=== PATIENT | female | born 1965 | race Caucasian/White ===

== ENCOUNTER 2016-02-28 13:22 | Emergency (ER) | payer OTHER ==
[2016-02-28] MEDS ORDERED: OXYMETAZOLINE NASAL SPRAY (AFRIN) As Ordered ONE (14:41)
[2016-02-28 15:15] LABS: BASO # 0.1 K/mm3 (0.0-0.2); BASO % 1.1 % (0.0-1.0); EOS # 0.2 K/mm3 (0.0-0.50); EOS % 3.1 % (0.0-3.0); LARGE UNSTAINED CELL # 0.1 K/mm3 (0.0-0.4); LARGE UNSTAINED CELL % 1.4 % (0.0-4.0); LYMPH # 2.1 K/mm3 (1.5-4.5); LYMPH % 28.5 % (24.0-44.0); MEAN CORPUSCULAR HEMOGLOBIN 29.7 pg (27.0-33.0); MEAN CORPUSCULAR HGB CONC 31.4 g/dl (32.0-36.5); MEAN CORPUSCULAR VOLUME 94.8 fl (80.0-96.0); MONO # 0.5 K/mm3 (0.0-0.8); MONO % 7.2 % (0.0-5.0); NEUTROPHILS # 4.2 K/mm3 (1.8-7.7); NEUTROPHILS % 58.7 % (36.0-66.0); PLATELET COUNT, AUTOMATED 362 k/mm3 (150-450); RED CELL DISTRIBUTION WIDTH 13.1 % (11.5-14.5); WHITE BLOOD COUNT 7.1 K/mm3 (4.0-10.0)
[2016-02-28 15:25] LABS: ALBUMIN 3.5 GM/DL (3.2-5.2); ALBUMIN/GLOBULIN RATIO 1.17 (1.00-1.93); ALKALINE PHOSPHATASE 83 U/L (45-117); ALT/SGPT 16 U/L (12-78); ANION GAP 9 MEQ/L (8-16); AST/SGOT 11 U/L (15-37); BILIRUBIN,TOTAL 0.3 MG/DL (0.2-1.0); BLOOD UREA NITROGEN 16 MG/DL (7-18); CALCIUM LEVEL 8.6 MG/DL (8.5-10.1); CARBON DIOXIDE LEVEL 23 MEQ/L (21-32); CHLORIDE LEVEL 110 MEQ/L (98-107); CREATININE FOR GFR 0.92 MG/DL (0.55-1.02); GLOMERULAR FILTRATION RATE > 60.0 (>58); GLUCOSE, FASTING 82 MG/DL (70-105); POTASSIUM SERUM 3.9 MEQ/L (3.5-5.1); SODIUM LEVEL 142 MEQ/L (136-145); TOTAL PROTEIN 6.5 GM/DL (6.4-8.2)
--- NOTE | 2016-02-28 16:39 | EDDOCDS ---
Physician Documentation [facility] Name: Katie Concepcion Age: 50 yrs Sex: Female : 1965 Arrival Date: 02/28/2016 Time: 13:22 Bed I4 / M4 Private MD: Shan [facility] Disposition: 02/28/16 16:10 Discharged to Home/Self Care. Impression: Dizziness and giddiness, Other specified disorders of Eustachian tube - Dysfunction. - Condition is Stable. - Discharge Instructions: Dizziness. - Prescriptions for Afrin (oxymetazoline) 0.05 % Nasal Aerosol, Danese - spray 2 spray by INTRANASAL route 2 times per day; 1 Container. Zyrtec 10 mg Oral Tablet - take 1 tablet by ORAL route once daily As needed; 20 tablet. - Medication Reconciliation, Local Pharmacy Hours form. - Follow up: [facility] Shan; When: 1 - 2 days; Reason: Recheck today's complaints, Continuance of care. Follow up: Emergency Department; Reason: Worsening of conditions. - Problem is new. - Symptoms have improved. Historical: - Allergies: Amoxicillin (Rash); - Home Meds: 1. Micardis 80 mg Oral tab 1 tab once daily 2. levothyroxine 175 mcg Oral tab 1 tab once daily 3. simvastatin 10 mg Oral tab 1 tab once daily 4. omeprazole 20 mg Oral cpDR 1 cap once daily 5. levocetirizine 5 mg oral tab 1 tab once daily 6. Singulair 10 mg Oral tab 1 tab once daily 7. Flonase 50 mcg/actuation Nasal spsn 1 spray 2 times per day 8. Restasis 0.05 % ophthalmic dpet 1 drop 2 times per day 9. Prozac 40 mg Oral cap 1 cap once daily 10. Topamax 200 mg Oral tab 1 tab daily 11. Ambien 5 mg Oral tab 1 tab once daily 12. Motrin Oral 800 mg every 8 hours 13. melatonin 5 mg Oral tab nightly 14. multivitamin Oral tab 1 tab daily 15. [place]-3 350 mg-235 mg- 90 mg-597 mg oral cpDR daily 16. Metamucil Smooth Texture Oral as needed 17. Colace oral Unknown as needed 18. Zyrtec 10 mg Oral tab 1 tab once daily - PMHx: Anemia; back and neck pain; Diverticulitis; GERD; Hypercholesterolemia; Hypertension; Hypothyroidism; Migraine Headaches; Plantar Fasciitis; Seasonal Allergies; Sleep Apnea w/ CPAP; TMJ; - PSHx: Nasal surgery; Scope Right Knee; Lasik Surgery; - Social history: Smoking status: Patient states was never smoker of tobacco. No barriers to communication noted, The patient speaks fluent Moroccan, Speaks appropriately for age. - Family history: Not pertinent. - : The pt / caregiver states he / she is not on anticoagulants. Home medication list is obtained from the patient. - Exposure Risk Screening:: None identified. THREAD WINDER: 02/27 13:35 LMP 01/16/2016, denies or irregular menses pml Vital Signs: 13:24 BP 154 / 96; Pulse 77; Resp 18 S; Temp 96.5(O); Pulse Ox 97% on R/A; Weight 86.18 kg / gr2 189.99 lbs (R); Height 5 ft. 6 in. (167.64 cm) (R); Pain 4/10; 15:51 BP 143 / 74; Pulse 84; Resp 18; Temp 96.6; Pulse Ox 98% ; Pain 1/10; jam1 13:24 Body Mass Index 30.67 (86.18 kg, 167.64 cm) gr2 MDM: 14:12 Financial registration complete. lg 14:15 [facility] Payment Agreement was scanned into [employer] and attached to record. lg 14:29 Accucheck ordered. ef1 14:29 IV Saline Lock ordered. ef1 14:29 NS 0.9% 1000 ml IV at bolus once ordered. ef1 14:30 ECG WITH READING ER PHYS+CARDIAG ordered. EDMS 14:30 CBC with Diff Ordered. EDMS 14:30 Complete Comphrensive Metabolic Ordered. EDMS 14:31 Oxymetazoline Danese 0.05 % 2 sprays Intranasal once ordered. ef1 14:45 Fingerstick Blood Sugar Ordered. EDMS 14:57 Fingerstick Blood Sugar Reviewed. ef1 15:46 CBC with Diff Reviewed. ef1 15:46 Complete Comphrensive Metabolic Reviewed. ef1 Point of Care Testing: Blood Glucose: 14:38 Blood Glucose: 78 mg/dL; kr3 Ranges: Administered Medications: 14:45 Drug: Oxymetazoline 2 sprays [oxymetazoline 0.05 % nasal spray (2 sprays)] Route: dls Intranasal; Site: both nares; 14:56 Drug: NS 0.9% 1000 ml [sodium chloride 0.9 % intravenous solution] Route: IV; Rate: dls bolus; Site: right antecubital; Signatures: Dispatcher [employer] Maddie Dyer RN RN dls Azucena Engel, Reg Reg lg Zaria Galdamez, PA-C PA-C ef1 Rebeka Jovel RN RN pml The chart was reviewed and I authenticate all verbal orders and agree with the evaluation and treatment provided.Attachments: 14:15 [facility] Payment Agreement lg MTDD
--- NOTE | 2016-02-28 16:39 | EDDOCDS ---
Nurse's Notes [facility] Name: Katie Concepcion Age: 50 yrs Sex: Female : 1965 Arrival Date: 02/28/2016 Time: 13:22 Bed I4 / M4 Private MD: Shan [facility] [place] [facility] Diagnosis: Dizziness and giddiness;Other specified disorders of Eustachian tube-Dysfunction Presentation: 02/27 13:32 Presenting complaint: Patient states: dizziness, light headed, fatigued. felt like this pml a few months ago and had low potassium - states high blood pressure readings at home 147/93. Adult Sepsis Screening: The patient does not have new or worsening altered mentation. Patient's respiratory rate is less than 22. Systolic blood pressure is greater than 100. Patient has a qSOFA score of 0- Negative Sepsis Screen. Suicide/Homicide risk assessment- the patient denies having any suicidal and/or homicidal ideations and does not present with any other emotional, behavioral or mental health complaints. Status: The patient is a dependent. Transition of care: patient was not received from another setting of care. 13:32 Acuity: LOYD Level 3 pml 13:32 Method Of Arrival: Walkin/Carried/Asstd pml Triage Assessment: 13:35 General: Appears in no apparent distress, Behavior is appropriate for age, cooperative. pml Pain: Location: headache Pain currently is 5 out of 10 on a pain scale. HIV screening NA for this visit Offered previously. MANAGER RESORT: 13:35 LMP 01/16/2016, denies or irregular menses pml Historical: - Allergies: Amoxicillin (Rash); - Home Meds: 1. Micardis 80 mg Oral tab 1 tab once daily 2. levothyroxine 175 mcg Oral tab 1 tab once daily 3. simvastatin 10 mg Oral tab 1 tab once daily 4. omeprazole 20 mg Oral cpDR 1 cap once daily 5. levocetirizine 5 mg oral tab 1 tab once daily 6. Singulair 10 mg Oral tab 1 tab once daily 7. Flonase 50 mcg/actuation Nasal spsn 1 spray 2 times per day 8. Restasis 0.05 % ophthalmic dpet 1 drop 2 times per day 9. Prozac 40 mg Oral cap 1 cap once daily 10. Topamax 200 mg Oral tab 1 tab daily 11. Ambien 5 mg Oral tab 1 tab once daily 12. Motrin Oral 800 mg every 8 hours 13. melatonin 5 mg Oral tab nightly 14. multivitamin Oral tab 1 tab daily 15. [place]-3 350 mg-235 mg- 90 mg-597 mg oral cpDR daily 16. Metamucil Smooth Texture Oral as needed 17. Colace oral Unknown as needed 18. Zyrtec 10 mg Oral tab 1 tab once daily - PMHx: Anemia; back and neck pain; Diverticulitis; GERD; Hypercholesterolemia; Hypertension; Hypothyroidism; Migraine Headaches; Plantar Fasciitis; Seasonal Allergies; Sleep Apnea w/ CPAP; TMJ; - PSHx: Nasal surgery; Scope Right Knee; Lasik Surgery; - Social history: Smoking status: Patient states was never smoker of tobacco. No barriers to communication noted, The patient speaks fluent Somali, Speaks appropriately for age. - Family history: Not pertinent. - : The pt / caregiver states he / she is not on anticoagulants. Home medication list is obtained from the patient. - Exposure Risk Screening:: None identified. Screenin:23 Infection Control. gr2 14:48 Screening information is obtained from the patient. Primary language is Somali. Fall jam1 risk: No risks identified. Assistance ADL's: requires no assistance with activities of daily living. Abuse/DV Screen: The patient / caregiver reports he/she is: not in a situation that causes fear, pain or injury. Nutritional screening: No deficits noted. Exposure Risk Screening: None identified. Advance Directives: Currently, there is no health care proxy. There is no active DNR order. There is no living will. There is no Power of Business Unit Controller. Advance directive information has not previously been placed in an [facility] medical record. Further advance directive information is declined. home support is adequate. Assessment: 14:57 General: Appears in no apparent distress, well developed, well nourished, well groomed, dls Behavior is cooperative. Pain: Denies pain. Neurological: Reports dizziness. EENT: No deficits noted. Cardiovascular: No deficits noted. Rhythm is sinus rhythm No ectopy. Respiratory: No deficits noted. GI: No deficits noted. : No deficits noted. Derm: No deficits noted. Musculoskeletal: No deficits noted. Vital Signs: 13:24 BP 154 / 96; Pulse 77; Resp 18 S; Temp 96.5(O); Pulse Ox 97% on R/A; Weight 86.18 kg gr2 (R); Height 5 ft. 6 in. (167.64 cm) (R); Pain 4/10; 15:51 BP 143 / 74; Pulse 84; Resp 18; Temp 96.6; Pulse Ox 98% ; Pain 1/10; jam1 13:24 Body Mass Index 30.67 (86.18 kg, 167.64 cm) gr2 Vitals: 13:24 Log In Time: February 28, 2016 at 13:24. gr2 ED Course: 13:23 Patient visited by Hermilo Farris. gr2 13:23 Shan [facility] is Private Physician. gr2 13:23 Patient moved to Waiting gr2 13:25 Patient visited by Hermilo Farris. gr2 13:25 Patient moved to Pre RCE gr2 13:32 Triage Initiated pml 13:36 Patient visited by Rebeka Jovel RN. pml 13:47 Patient moved to Triage 1 kr3 14:10 Z[facility] Galdamez [facility]-C [facility]. ef1 14:10 Dre Zayas MD is Attending Physician. ef1 14:10 Patient visited by Zaria Galdamez PA-C. ef1 14:15 [facility] Payment Agreement was scanned into [employer] and attached to record. lg 14:30 Patient moved to I4 / M4 jo3 14:48 Pt greeted and oriented to ED. Patient advised of names of staff involved in care, jam1 location of call bo, wait times and NPO status. Patient has correct armband on for positive identification. Placed in gown. Bed in low position. Call light in reach. Side rails up X 1. Door closed. 14:56 Complete Comphrensive Metabolic Sent. dls 14:56 CBC with Diff Sent. dls 14:57 Patient visited by Zaria Galdamez PA-C. ef1 14:57 Inserted saline lock: 20 gauge in right antecubital area and blood collected. The dls patient tolerated the procedure well. No procedures done that require assistance. Labs drawn. (by ED staff). EKG done. (by ED staff). Reviewed by Dre Zayas MD. 15:35 Patient visited by Zaria Galdamez PA-C. ef1 16:09 Patient visited by Zaria Galdamez PA-C. ef1 16:10 SARI Torrez is Referral Physician. ef1 16:36 Discontinued IV lock intact, bleeding controlled, pressure dressing applied, No dls redness/swelling at site. 16:38 The patient / caregiver is instructed regarding the plan of care and ED course. dls Administered Medications: 14:45 Drug: Oxymetazoline 2 sprays [oxymetazoline 0.05 % nasal spray (2 sprays)] Route: dls Intranasal; Site: both nares; 14:56 Drug: NS 0.9% 1000 ml [sodium chloride 0.9 % intravenous solution] Route: IV; Rate: dls bolus; Site: right antecubital; Point of Care Testing: Blood Glucose: 14:38 Blood Glucose: 78 mg/dL; kr3 Ranges: Order Results: Lab Order: CBC with Diff; SPEC'M 02/28/16 14:54 Test: WHITE BLOOD COUNT; Value: 7.1; Range: 4.0-10.0; Units: K/mm3; Status: F Test: RED BLOOD COUNT; Value: 4.51; Range: 4.00-5.40; Units: M/mm3; Status: F Test: HEMOGLOBIN; Value: 13.4; Range: 12.0-16.0; Units: g/dl; Status: F Test: HEMATOCRIT; Value: 42.8; Range: 36.0-47.0; Units: %; Status: F Test: MEAN CORPUSCULAR VOLUME; Value: 94.8; Range: 80.0-96.0; Units: fl; Status: F Test: MEAN CORPUSCULAR HEMOGLOBIN; Value: 29.7; Range: 27.0-33.0; Units: pg; Status: F Test: MEAN CORPUSCULAR HGB CONC; Value: 31.4; Range: 32.0-36.5; Abnormal: Below low normal; Units: g/dl; Status: F Test: RED CELL DISTRIBUTION WIDTH; Value: 13.1; Range: 11.5-14.5; Units: %; Status: F Test: PLATELET COUNT, AUTOMATED; Value: 362; Range: 150-450; Units: k/mm3; Status: F Test: NEUTROPHILS %; Value: 58.7; Range: 36.0-66.0; Units: %; Status: F Test: LYMPH %; Value: 28.5; Range: 24.0-44.0; Units: %; Status: F Test: MONO %; Value: 7.2; Range: 0.0-5.0; Abnormal: Above high normal; Units: %; Status: F Test: EOS %; Value: 3.1; Range: 0.0-3.0; Abnormal: Above high normal; Units: %; Status: F Test: BASO %; Value: 1.1; Range: 0.0-1.0; Abnormal: Above high normal; Units: %; Status: F Test: LARGE UNSTAINED CELL %; Value: 1.4; Range: 0.0-4.0; Units: %; Status: F Test: NEUTROPHILS #; Value: 4.2; Range: 1.8-7.7; Units: K/mm3; Status: F Test: LYMPH #; Value: 2.1; Range: 1.5-4.5; Units: K/mm3; Status: F Test: MONO #; Value: 0.5; Range: 0.0-0.8; Units: K/mm3; Status: F Test: EOS #; Value: 0.2; Range: 0.0-0.50; Units: K/mm3; Status: F Test: BASO #; Value: 0.1; Range: 0.0-0.2; Units: K/mm3; Status: F Test: LARGE UNSTAINED CELL #; Value: 0.1; Range: 0.0-0.4; Units: K/mm3; Status: F Lab Order: Complete Comphrensive Metabolic; SPEC'M 02/28/16 14:54 Test: GLUCOSE, FASTING; Value: 82; Range: 70-105; Units: MG/DL; Status: F Test: BLOOD UREA NITROGEN; Value: 16; Range: 7-18; Units: MG/DL; Status: F Test: CREATININE FOR GFR; Value: 0.92; Range: 0.55-1.02; Units: MG/DL; Status: F Test: GLOMERULAR FILTRATION RATE; Value: > 60.0; Range: >58; Status: F Test: SODIUM LEVEL; Value: 142; Range: 136-145; Units: MEQ/L; Status: F Test: POTASSIUM SERUM; Value: 3.9; Range: 3.5-5.1; Units: MEQ/L; Status: F Test: CHLORIDE LEVEL; Value: 110; Range: 98-107; Abnormal: Above high normal; Units: MEQ/L; Status: F Test: CARBON DIOXIDE LEVEL; Value: 23; Range: 21-32; Units: MEQ/L; Status: F Test: ANION GAP; Value: 9; Range: 8-16; Units: MEQ/L; Status: F Test: CALCIUM LEVEL; Value: 8.6; Range: 8.5-10.1; Units: MG/DL; Status: F Test: AST/SGOT; Value: 11; Range: 15-37; Abnormal: Below low normal; Units: U/L; Status: F Test: ALT/SGPT; Value: 16; Range: 12-78; Units: U/L; Status: F Test: ALKALINE PHOSPHATASE; Value: 83; Range: 45-117; Units: U/L; Status: F Test: BILIRUBIN,TOTAL; Value: 0.3; Range: 0.2-1.0; Units: MG/DL; Status: F Test: TOTAL PROTEIN; Value: 6.5; Range: 6.4-8.2; Units: GM/DL; Status: F Test: ALBUMIN; Value: 3.5; Range: 3.2-5.2; Units: GM/DL; Status: F Test: ALBUMIN/GLOBULIN RATIO; Value: 1.17; Range: 1.00-1.93; Status: F Test Note: ; Units are mL/min/1.73 m2 Chronic Kidney Disease Staging per NKF: Stage I & II GFR >=60 Normal to Mildly Decreased Stage III GFR 30-59 Moderately Decreased Stage IV GFR 15-29 Severely Decreased Stage V GFR <15 Very Little GFR Left ESRD GFR <15 on [place] Lab Order: Fingerstick Blood Sugar; SPEC'M 02/28/16 14:37 Test: BEDSIDE GLUCOSE; Value: 78; Range: 70-105; Units: MG/DL; Status: F Outcome: 16:10 Discharge ordered by Provider. ef1 16:36 Discharge Assessment: Patient awake, alert and oriented x 3. No cognitive and/or dls functional deficits noted. Patient verbalized understanding of disposition instructions. patient administered narcotics - no. The following High Risk Discharge criteria are identified: None. Discharged to home ambulatory. Condition: stable Condition: improved. Discharge instructions given to patient, Instructed on discharge instructions, follow up and referral plans. medication usage, Demonstrated understanding of instructions, medications, Pt was receptive of discharge instructions/ teaching. Prescriptions given X 2. No special radiology studies were completed. Property sent home with patient. 16:38 Patient left the ED. dls Signatures: Maddie Logan, RN RN dls Charlette Thompson, PSYCHIATRIC THERAPIST PSYCHIATRIC THERAPIST jam1 Azucena Engel, Giovanni Davila Torri ChenRN RN [id number] Alexandria CelisRN RN [id number] Zaria Galdamez, PA-C PA-C ef1 Rebeka JovelRN RN Hermilo Mcguire gr2 MTDD
--- NOTE | 2016-02-29 07:13 | ECGEPIP ---
Stationary ECG Study [facility] - ED Test Date: 2016-02-28 Pat Name: TOMI THOMAS Department: Room: - Gender: F Professional Services Consultant: radha : 1965 Requested By: Zaria Galdamez PA-C Order Number: [id number] Reading MD: Mika Morrison Measurements Intervals [place] Rate: 65 P: 32 MI: 148 QRS: -3 QRSD: 94 T: 6 QT: 406 QTc: 423 Interpretive Statements SINUS RHYTHM INC. RBBB NONSPECIFIC T-WAVE ABNORMALITY Electronically Signed On 02-29-2016 7:13:32 EST by Mika Morrison
--- NOTE | 2016-03-01 17:40 | EDDOCDS ---
Nurse's Notes [facility] Name: Katie Concepcion Age: 50 yrs Sex: Female : 1965 Arrival Date: 02/28/2016 Time: 13:22 Bed I4 / M4 Private MD: Shan [facility] Diagnosis: Dizziness and giddiness;Other specified disorders of Eustachian tube-Dysfunction Presentation: 02/27 13:32 Presenting complaint: Patient states: dizziness, light headed, fatigued. felt like this pml a few months ago and had low potassium - states high blood pressure readings at home 147/93. Adult Sepsis Screening: The patient does not have new or worsening altered mentation. Patient's respiratory rate is less than 22. Systolic blood pressure is greater than 100. Patient has a qSOFA score of 0- Negative Sepsis Screen. Suicide/Homicide risk assessment- the patient denies having any suicidal and/or homicidal ideations and does not present with any other emotional, behavioral or mental health complaints. Status: The patient is a dependent. Transition of care: patient was not received from another setting of care. 13:32 Acuity: LOYD Level 3 pml 13:32 Method Of Arrival: Walkin/Carried/Asstd pml Triage Assessment: 13:35 General: Appears in no apparent distress, Behavior is appropriate for age, cooperative. pml Pain: Location: headache Pain currently is 5 out of 10 on a pain scale. HIV screening NA for this visit Offered previously. 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 Micardis 80 mg Oral tab 1 tab once daily 2. levothyroxine 175 mcg Oral tab 1 tab once daily 3. simvastatin 10 mg Oral tab 1 tab once daily 4. omeprazole 20 mg Oral cpDR 1 cap once daily 5. levocetirizine 5 mg oral tab 1 tab once daily 6. Singulair 10 mg Oral tab 1 tab once daily 7. Flonase 50 mcg/actuation Nasal spsn 1 spray 2 times per day 8. Restasis 0.05 % ophthalmic dpet 1 drop 2 times per day 9. Prozac 40 mg Oral cap 1 cap once daily 10. Topamax 200 mg Oral tab 1 tab daily 11. Ambien 5 mg Oral tab 1 tab once daily 12. Motrin Oral 800 mg every 8 hours 13. melatonin 5 mg Oral tab nightly 14. multivitamin Oral tab 1 tab daily 15. [place]-3 350 mg-235 mg- 90 mg-597 mg oral cpDR daily 16. Metamucil Smooth Texture Oral as needed 17. Colace oral Unknown as needed 18. Zyrtec 10 mg Oral tab 1 tab once daily - PMHx: Anemia; back and neck pain; Diverticulitis; GERD; Hypercholesterolemia; Hypertension; Hypothyroidism; Migraine Headaches; Plantar Fasciitis; Seasonal Allergies; Sleep Apnea w/ CPAP; TMJ; - PSHx: Nasal surgery; Scope Right Knee; Lasik Surgery; - Social history: Smoking status: Patient states was never smoker of tobacco. No barriers to communication noted, The patient speaks fluent Lebanese, Speaks appropriately for age. - Family history: Not pertinent. - : The pt / caregiver states he / she is not on anticoagulants. Home medication list is obtained from the patient. - Exposure Risk Screening:: None identified. Screenin:23 Infection Control. gr2 14:48 Screening information is obtained from the patient. Primary language is Lebanese. Fall jam1 risk: No risks identified. Assistance ADL's: requires no assistance with activities of daily living. Abuse/DV Screen: The patient / caregiver reports he/she is: not in a situation that causes fear, pain or injury. Nutritional screening: No deficits noted. Exposure Risk Screening: None identified. Advance Directives: Currently, there is no health care proxy. There is no active DNR order. There is no living will. 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 Advance directive information has not previously been placed in an [facility] medical record. Further advance directive information is declined. home support is adequate. Assessment: 14:57 General: Appears in no apparent distress, well developed, well nourished, well groomed, dls Behavior is cooperative. Pain: Denies pain. Neurological: Reports dizziness. EENT: No deficits noted. Cardiovascular: No deficits noted. Rhythm is sinus rhythm No ectopy. Respiratory: No deficits noted. GI: No deficits noted. : No deficits noted. Derm: No deficits noted. Musculoskeletal: No deficits noted. Vital Signs: 13:24 BP 154 / 96; Pulse 77; Resp 18 S; Temp 96.5(O); Pulse Ox 97% on R/A; Weight 86.18 kg gr2 (R); Height 5 ft. 6 in. (167.64 cm) (R); Pain 4/10; 15:51 BP 143 / 74; Pulse 84; Resp 18; Temp 96.6; Pulse Ox 98% ; Pain 1/10; jam1 13:24 Body Mass Index 30.67 (86.18 kg, 167.64 cm) gr2 Vitals: 13:24 Log In Time: February 28, 2016 at 13:24. gr2 ED Course: 13:23 Patient visited by Hermilo Farris. gr2 13:23 Shan [facility] is Private Physician. gr2 13:23 Patient moved to Waiting gr2 13:25 Patient visited by Hermilo Farris. gr2 13:25 Patient moved to Pre RCE gr2 13:32 Triage Initiated pml 13:36 Patient visited by Rebeka Jovel RN. pml 13:47 Patient moved to Triage 1 kr3 14:10 [facility] ef1 14:10 Dre Zayas MD is Attending Physician. ef1 14:10 Patient visited by Zaria Galdamez PA-C. ef1 14:15 [facility] Payment Agreement was scanned into StandDesk and attached to record. lg 14:30 Patient moved to I4 / M4 jo3 14:48 Pt greeted and oriented to ED. Patient advised of names of staff involved in care, jam1 location of call bo, wait times and NPO status. Patient has correct armband on for positive identification. Placed in gown. Bed in low position. Call light in reach. Side rails up X 1. Door closed. 14:56 Complete Comphrensive Metabolic Sent. dls 14:56 CBC with Diff Sent. dls 14:57 Patient visited by Zaria Galdamez PA-C. ef1 14:57 Inserted saline lock: 20 gauge in right antecubital area and blood collected. The dls patient tolerated the procedure well. No procedures done that require assistance. Labs drawn. (by ED staff). EKG done. (by ED staff). Reviewed by Dre Zayas MD. 15:35 Patient visited by Zaria Galdamez PA-C. ef1 16:09 Patient visited by Zaria Galdamez PA-C. ef1 16:10 SARI Torrez is Referral Physician. ef1 16:36 Discontinued IV lock intact, bleeding controlled, pressure dressing applied, No dls redness/swelling at site. 16:38 The patient / caregiver is instructed regarding the plan of care and ED course. dls 22:00 T-Sheet-- Draft Copy was scanned into StandDesk and attached to record. klr 02/28 07:28 EKG-ADULT Returned. EDMS 10:21 ECG/EKG was scanned into StandDesk and attached to record. gb Administered Medications: 02/27 14:45 Drug: Oxymetazoline 2 sprays [oxymetazoline 0.05 % nasal spray (2 sprays)] Route: dls Intranasal; Site: both nares; 14:56 Drug: NS 0.9% 1000 ml [sodium chloride 0.9 % intravenous solution] Route: IV; Rate: dls bolus; Site: right antecubital; Point of Care Testing: Blood Glucose: 14:38 Blood Glucose: 78 mg/dL; kr3 Ranges: Order Results: Lab Order: CBC with Diff; SPEC'M 02/28/16 14:54 Test: WHITE BLOOD COUNT; Value: 7.1; Range: 4.0-10.0; Units: K/mm3; Status: F Test: RED BLOOD COUNT; Value: 4.51; Range: 4.00-5.40; Units: M/mm3; Status: F Test: HEMOGLOBIN; Value: 13.4; Range: 12.0-16.0; Units: g/dl; Status: F Test: HEMATOCRIT; Value: 42.8; Range: 36.0-47.0; Units: %; Status: F Test: MEAN CORPUSCULAR VOLUME; Value: 94.8; Range: 80.0-96.0; Units: fl; Status: F Test: MEAN CORPUSCULAR HEMOGLOBIN; Value: 29.7; Range: 27.0-33.0; Units: pg; Status: F Test: MEAN CORPUSCULAR HGB CONC; Value: 31.4; Range: 32.0-36.5; Abnormal: Below low normal; Units: g/dl; Status: F Test: RED CELL DISTRIBUTION WIDTH; Value: 13.1; Range: 11.5-14.5; Units: %; Status: F Test: PLATELET COUNT, AUTOMATED; Value: 362; Range: 150-450; Units: k/mm3; Status: F Test: NEUTROPHILS %; Value: 58.7; Range: 36.0-66.0; Units: %; Status: F Test: LYMPH %; Value: 28.5; Range: 24.0-44.0; Units: %; Status: F Test: MONO %; Value: 7.2; Range: 0.0-5.0; Abnormal: Above high normal; Units: %; Status: F Test: EOS %; Value: 3.1; Range: 0.0-3.0; Abnormal: Above high normal; Units: %; Status: F Test: BASO %; Value: 1.1; Range: 0.0-1.0; Abnormal: Above high normal; Units: %; Status: F Test: LARGE UNSTAINED CELL %; Value: 1.4; Range: 0.0-4.0; Units: %; Status: F Test: NEUTROPHILS #; Value: 4.2; Range: 1.8-7.7; Units: K/mm3; Status: F Test: LYMPH #; Value: 2.1; Range: 1.5-4.5; Units: K/mm3; Status: F Test: MONO #; Value: 0.5; Range: 0.0-0.8; Units: K/mm3; Status: F Test: EOS #; Value: 0.2; Range: 0.0-0.50; Units: K/mm3; Status: F Test: BASO #; Value: 0.1; Range: 0.0-0.2; Units: K/mm3; Status: F Test: LARGE UNSTAINED CELL #; Value: 0.1; Range: 0.0-0.4; Units: K/mm3; Status: F Lab Order: Complete Comphrensive Metabolic; SPEC'M 02/28/16 14:54 Test: GLUCOSE, FASTING; Value: 82; Range: 70-105; Units: MG/DL; Status: F Test: BLOOD UREA NITROGEN; Value: 16; Range: 7-18; Units: MG/DL; Status: F Test: CREATININE FOR GFR; Value: 0.92; Range: 0.55-1.02; Units: MG/DL; Status: F Test: GLOMERULAR FILTRATION RATE; Value: > 60.0; Range: >58; Status: F Test: SODIUM LEVEL; Value: 142; Range: 136-145; Units: MEQ/L; Status: F Test: POTASSIUM SERUM; Value: 3.9; Range: 3.5-5.1; Units: MEQ/L; Status: F Test: CHLORIDE LEVEL; Value: 110; Range: 98-107; Abnormal: Above high normal; Units: MEQ/L; Status: F Test: CARBON DIOXIDE LEVEL; Value: 23; Range: 21-32; Units: MEQ/L; Status: F Test: ANION GAP; Value: 9; Range: 8-16; Units: MEQ/L; Status: F Test: CALCIUM LEVEL; Value: 8.6; Range: 8.5-10.1; Units: MG/DL; Status: F Test: AST/SGOT; Value: 11; Range: 15-37; Abnormal: Below low normal; Units: U/L; Status: F Test: ALT/SGPT; Value: 16; Range: 12-78; Units: U/L; Status: F Test: ALKALINE PHOSPHATASE; Value: 83; Range: 45-117; Units: U/L; Status: F Test: BILIRUBIN,TOTAL; Value: 0.3; Range: 0.2-1.0; Units: MG/DL; Status: F Test: TOTAL PROTEIN; Value: 6.5; Range: 6.4-8.2; Units: GM/DL; Status: F Test: ALBUMIN; Value: 3.5; Range: 3.2-5.2; Units: GM/DL; Status: F Test: ALBUMIN/GLOBULIN RATIO; Value: 1.17; Range: 1.00-1.93; Status: F Test Note: ; Units are mL/min/1.73 m2 Chronic Kidney Disease Staging per NKF: Stage I & II GFR >=60 Normal to Mildly Decreased Stage III GFR 30-59 Moderately Decreased Stage IV GFR 15-29 Severely Decreased Stage V GFR <15 Very Little GFR Left ESRD GFR <15 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 Lab Order: Fingerstick Blood Sugar; SPEC'M 02/28/16 14:37 Test: BEDSIDE GLUCOSE; Value: 78; Range: 70-105; Units: MG/DL; Status: F Radiology Order: EKG-ADULT Test: EKG-ADULT REASON FOR EXAMINATION: dizziness; Stationary ECG Study; [facility] - ED; ; Test Date: 2016-02-28; Pat Name: KATIE CONCEPCION Department:; Room: -; Gender: F 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 RBBB; NONSPECIFIC T-WAVE ABNORMALITY; Electronically Signed On 02-29-2016 7:13:32 EST by Mika Morrison; Outcome: 16:10 Discharge ordered by Provider. ef1 16:36 Discharge Assessment: Patient awake, alert and oriented x 3. No cognitive and/or dls functional deficits noted. Patient verbalized understanding of disposition instructions. patient administered narcotics - no. The following High Risk Discharge criteria are identified: None. Discharged to home ambulatory. Condition: stable Condition: improved. Discharge instructions given to patient, Instructed on discharge instructions, follow up and referral plans. medication usage, Demonstrated understanding of instructions, medications, Pt was receptive of discharge instructions/ teaching. Prescriptions given X 2. No special radiology studies were completed. Property sent home with patient. 16:38 Patient left the ED. dls Signatures: Dispatcher MedHost EDMS Maddie Logan RN RN dls Charlette Thompson, PROFESSOR OF RELIGIOUS STUDIES PROFESSOR OF RELIGIOUS STUDIES jam1 Lorena Ferraro, Reg Reg gb Azucena Engel, Reg Reg lg Torri Chen RN RN kr3 Helmerci, Jennifer, RN RN jo3 Feola, Erica, PA-C PA-C ef1 Rebeka Jovel RN RN pml Raymond, Gainslee gr2 Esperanza Riggs Chart Complete MTDD
--- NOTE | 2016-03-01 17:40 | EDDOCDS ---
Physician Documentation [facility] Name: Katie Concepcion Age: 50 yrs Sex: Female : 1965 Arrival Date: 02/28/2016 Time: 13:22 Bed I4 / M4 Private MD: Shan [facility] Disposition: 02/28/16 16:10 Discharged to Home/Self Care. Impression: Dizziness and giddiness, Other specified disorders of Eustachian tube - Dysfunction. - Condition is Stable. - Discharge Instructions: Dizziness. - Prescriptions for Afrin (oxymetazoline) 0.05 % Nasal Aerosol, [place] - spray 2 spray by INTRANASAL route 2 times per day; 1 Container. Zyrtec 10 mg Oral Tablet - take 1 tablet by ORAL route once daily As needed; 20 tablet. - Medication Reconciliation, Local Pharmacy Hours form. - [place] up: [facility] Shan; When: 1 - 2 days; Reason: Recheck today's complaints, Continuance of care. Follow up: Emergency Department; Reason: Worsening of conditions. - Problem is new. - Symptoms have improved. Historical: - Allergies: Amoxicillin (Rash); - Home Meds: 1. Micardis 80 mg Oral tab 1 tab once daily 2. levothyroxine 175 mcg Oral tab 1 tab once daily 3. simvastatin 10 mg Oral tab 1 tab once daily 4. omeprazole 20 mg Oral cpDR 1 cap once daily 5. levocetirizine 5 mg oral tab 1 tab once daily 6. Singulair 10 mg Oral tab 1 tab once daily 7. Flonase 50 mcg/actuation Nasal spsn 1 spray 2 times per day 8. Restasis 0.05 % ophthalmic dpet 1 drop 2 times per day 9. Prozac 40 mg Oral cap 1 cap once daily 10. Topamax 200 mg Oral tab 1 tab daily 11. Ambien 5 mg Oral tab 1 tab once daily 12. Motrin Oral 800 mg every 8 hours 13. melatonin 5 mg Oral tab nightly 14. multivitamin Oral tab 1 tab daily 15. [place]-3 350 mg-235 mg- 90 mg-597 mg oral cpDR daily 16. Metamucil Smooth Texture Oral as needed 17. Colace oral Unknown as needed 18. Zyrtec 10 mg Oral tab 1 tab once daily - PMHx: Anemia; back and neck pain; Diverticulitis; GERD; Hypercholesterolemia; Hypertension; Hypothyroidism; Migraine Headaches; Plantar Fasciitis; Seasonal Allergies; Sleep Apnea w/ CPAP; TMJ; - PSHx: Nasal surgery; Scope Right Knee; Lasik Surgery; - Social history: Smoking status: Patient states was never smoker of tobacco. No barriers to communication noted, The patient speaks fluent Cambodian, Speaks appropriately for age. - Family history: Not pertinent. - : The pt / caregiver states he / she is not on anticoagulants. Home medication list is obtained from the patient. - Exposure Risk Screening:: None identified. 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 6 in. (167.64 cm) (R); Pain 4/10; 15:51 BP 143 / 74; Pulse 84; Resp 18; Temp 96.6; Pulse Ox 98% ; Pain 1/10; jam1 13:24 Body Mass Index 30.67 (86.18 kg, 167.64 cm) gr2 MDM: 14:12 Financial registration complete. lg 14:15 [facility] Payment Agreement was scanned into IdeaString and attached to record. lg 14:29 Accucheck ordered. ef1 14:29 IV Saline Lock ordered. ef1 14:29 NS 0.9% 1000 ml IV at bolus once ordered. ef1 14:30 ECG WITH READING ER PHYS+CARDIAG ordered. EDMS 14:30 CBC with Diff Ordered. EDMS 14:30 Complete Comphrensive Metabolic Ordered. EDMS 14:31 Oxymetazoline [place] 0.05 % 2 sprays Intranasal once ordered. ef1 14:45 Fingerstick Blood Sugar Ordered. EDMS 14:57 Fingerstick Blood Sugar Reviewed. ef1 15:46 CBC with Diff Reviewed. ef1 15:46 Complete Comphrensive Metabolic Reviewed. ef1 22:00 T-Sheet-- Draft Copy was scanned into IdeaString and attached to record. klr 02/28 10:21 ECG/EKG was scanned into IdeaString and attached to record. gb Point of Care Testing: Blood Glucose: 02/27 14:38 Blood Glucose: 78 mg/dL; kr3 Ranges: Administered Medications: 14:45 Drug: Oxymetazoline 2 sprays [oxymetazoline 0.05 % nasal spray (2 sprays)] Route: dls Intranasal; Site: both nares; 14:56 Drug: NS 0.9% 1000 ml [sodium chloride 0.9 % intravenous solution] Route: IV; Rate: dls bolus; Site: right antecubital; Signatures: Dispatcher MedHost Maddie Dyer RN RN dls Lorena Ferraro, Reg Reg gb Azucena Engel, Reg Reg lg Zaria Galdamez, PA-C PA-C ef1 Rebeka Jovel RN RN pml Redder, Kathie klr The chart was reviewed and I authenticate all verbal orders and agree with the evaluation and treatment provided.Attachments: 14:15 [facility] Payment Agreement lg 22:00 T-Sheet-- Draft Copy klr 02/28 10:21 ECG/EKG gb Chart Complete MTDD
--- NOTE | 2016-03-01 17:40 | EDDOCDS ---
[facility]ation [facility] Name: Katie Concepcion Age: 50 yrs Sex: Female : 1965 Arrival Date: 02/28/2016 Time: 13:22 Bed I4 / M4 Private MD: Shan [facility] Disposition: 02/28/16 16:10 Discharged to Home/Self Care. Impression: Dizziness and giddiness, Other specified disorders of Eustachian tube - Dysfunction. - Condition is Stable. - Discharge Instructions: Dizziness. - Prescriptions for Afrin (oxymetazoline) 0.05 % Nasal Aerosol, [place] - spray 2 spray by INTRANASAL route 2 times per day; 1 Container. Zyrtec 10 mg Oral Tablet - take 1 tablet by ORAL route once daily As needed; 20 tablet. - Medication Reconciliation, Local Pharmacy Hours form. - Follow up: [facility] Shan; When: 1 - 2 days; Reason: Recheck today's complaints, Continuance of care. Follow up: Emergency Department; Reason: Worsening of conditions. - Problem is new. - Symptoms have improved. Historical: - Allergies: Amoxicillin (Rash); - Home Meds: 1. Micardis 80 mg Oral tab 1 tab once daily 2. levothyroxine 175 mcg Oral tab 1 tab once daily 3. simvastatin 10 mg Oral tab 1 tab once daily 4. omeprazole 20 mg Oral cpDR 1 cap once daily 5. levocetirizine 5 mg oral tab 1 tab once daily 6. Singulair 10 mg Oral tab 1 tab once daily 7. Flonase 50 mcg/actuation Nasal spsn 1 spray 2 times per day 8. Restasis 0.05 % ophthalmic dpet 1 drop 2 times per day 9. Prozac 40 mg Oral cap 1 cap once daily 10. Topamax 200 mg Oral tab 1 tab daily 11. Ambien 5 mg Oral tab 1 tab once daily 12. Motrin Oral 800 mg every 8 hours 13. melatonin 5 mg Oral tab nightly 14. multivitamin Oral tab 1 tab daily 15. [place]-3 350 mg-235 mg- 90 mg-597 mg oral cpDR daily 16. Metamucil Smooth Texture Oral as needed 17. Colace oral Unknown as needed 18. Zyrtec 10 mg Oral tab 1 tab once daily - PMHx: Anemia; back and neck pain; Diverticulitis; GERD; Hypercholesterolemia; Hypertension; Hypothyroidism; Migraine Headaches; Plantar Fasciitis; Seasonal Allergies; Sleep Apnea w/ CPAP; TMJ; - PSHx: Nasal surgery; Scope Right Knee; Lasik Surgery; - Social history: Smoking status: Patient states was never smoker of tobacco. No barriers to communication noted, The patient speaks fluent Romanian, Speaks appropriately for age. - Family history: Not pertinent. - : The pt / caregiver states he / she is not on anticoagulants. Home medication list is obtained from the patient. - Exposure Risk Screening:: None identified. 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 6 in. (167.64 cm) (R); Pain 4/10; 15:51 BP 143 / 74; Pulse 84; Resp 18; Temp 96.6; Pulse Ox 98% ; Pain 1/10; jam1 13:24 Body Mass Index 30.67 (86.18 kg, 167.64 cm) gr2 MDM: 14:12 Financial registration complete. lg 14:15 [facility] Payment Agreement was scanned into Wittlebee and attached to record. lg 14:29 Accucheck ordered. ef1 14:29 IV Saline Lock ordered. ef1 14:29 NS 0.9% 1000 ml IV at bolus once ordered. ef1 14:30 ECG WITH READING ER PHYS+CARDIAG ordered. EDMS 14:30 CBC with Diff Ordered. EDMS 14:30 Complete Comphrensive Metabolic Ordered. EDMS 14:31 Oxymetazoline [place] 0.05 % 2 sprays Intranasal once ordered. ef1 14:45 Fingerstick Blood Sugar Ordered. EDMS 14:57 Fingerstick Blood Sugar Reviewed. ef1 15:46 CBC with Diff Reviewed. ef1 15:46 Complete Comphrensive Metabolic Reviewed. ef1 22:00 T-Sheet-- Draft Copy was scanned into Wittlebee and attached to record. klr 02/28 10:21 ECG/EKG was scanned into Wittlebee and attached to record. gb Point of Care Testing: Blood Glucose: 02/27 14:38 Blood Glucose: 78 mg/dL; kr3 Ranges: Administered Medications: 14:45 Drug: Oxymetazoline 2 sprays [oxymetazoline 0.05 % nasal spray (2 sprays)] Route: dls Intranasal; Site: both nares; 14:56 Drug: NS 0.9% 1000 ml [sodium chloride 0.9 % intravenous solution] Route: IV; Rate: dls bolus; Site: right antecubital; Signatures: Dispatcher MedHost Maddie Dyer RN RN dls Lorena Ferraro, Reg Reg gb Azucena Engel, Reg Reg lg Zaria Galdamez, PA-C PA-C ef1 Rebeka Jovel RN RN pml Redder, Kathie klr The chart was reviewed and I authenticate all verbal orders and agree with the evaluation and treatment provided.Attachments: 14:15 [facility] Payment Agreement lg 22:00 T-Sheet-- Draft Copy klr 02/28 10:21 ECG/EKG gb Chart Complete MTDD
== END 2016-02-28 16:38 | disposition home or self-care (01) ==
LOC: M ED 13:22
DX: R42 Dizziness and giddiness (principal); H69.90 Unspecified Eustachian tube disorder, unspecified ear; D64.9 Anemia, unspecified; K57.92 Diverticulitis of intestine, part unspecified, without perforation or abscess without bleeding; K21.9 Gastro-esophageal reflux disease without esophagitis; E78.00 Pure hypercholesterolemia, unspecified; I10 Essential (primary) hypertension; E03.9 Hypothyroidism, unspecified; G43.909 Migraine, unspecified, not intractable, without status migrainosus; J30.2 Other seasonal allergic rhinitis; G47.33 Obstructive sleep apnea (adult) (pediatric); M54.2 Cervicalgia; Z79.899 Other long term (current) drug therapy; Z88.1 Allergy status to other antibiotic agents

== ENCOUNTER 2016-04-05 13:36 | Emergency (ER) | payer OTHER ==
[~2016-04-05] VITALS: Ht 165.1 cm; Wt 86.2 kg
[2016-04-05] MEDS ORDERED: NS 1,000 ML IV ONE (15:30)
[2016-04-05] MEDS ORDERED: ONDANSETRON 4MG/2ML VIAL (J2405) IV ONE (15:30)
[2016-04-05] MEDS ORDERED: FLON1SPR (15:56)
[2016-04-05] MEDS ORDERED: OMEP20CA3 PO (15:56)
[2016-04-05] MEDS ORDERED: SIMV10TA2 PO (15:56)
[2016-04-05] MEDS ORDERED: EPIP0.3I2 IM (15:56)
[2016-04-05] MEDS ORDERED: PROZ40CA PO (15:56)
[2016-04-05] MEDS ORDERED: MONT10TA2 PO (15:56)
[2016-04-05] MEDS ORDERED: REST0.05 OU (15:56)
[2016-04-05] MEDS ORDERED: TOPA200T6 PO (15:56)
[2016-04-05] MEDS ORDERED: MICA80TA PO (15:56)
[2016-04-05] MEDS ORDERED: TYLE325T5 PO (15:56)
[2016-04-05] MEDS ORDERED: AMBI10TA PO (15:56)
[2016-04-05] MEDS ORDERED: LEVOTAB10 PO (15:56)
[2016-04-05] MEDS ORDERED: SYNT125T PO (15:56)
[2016-04-05 16:02] LABS: BASO % 0.2 % (0.0-1.0); EOS # 0.1 K/mm3 (0.0-0.50); EOS % 1.3 % (0.0-3.0); LARGE UNSTAINED CELL # 0.1 K/mm3 (0.0-0.4); LARGE UNSTAINED CELL % 1.6 % (0.0-4.0); LYMPH % 12.8 % (24.0-44.0); MEAN CORPUSCULAR HEMOGLOBIN 29.6 pg (27.0-33.0); MEAN CORPUSCULAR HGB CONC 33.4 g/dl (32.0-36.5); MEAN CORPUSCULAR VOLUME 88.4 fl (80.0-96.0); MONO # 0.5 K/mm3 (0.0-0.8); MONO % 6.4 % (0.0-5.0); NEUTROPHILS # 5.8 K/mm3 (1.8-7.7); NEUTROPHILS % 77.7 % (36.0-66.0); PLATELET COUNT, AUTOMATED 380 k/mm3 (150-450); RED CELL DISTRIBUTION WIDTH 12.5 % (11.5-14.5); WHITE BLOOD COUNT 7.5 K/mm3 (4.0-10.0)
[2016-04-05 16:20] LABS: ANION GAP 9 MEQ/L (8-16); BLOOD UREA NITROGEN 19 MG/DL (7-18); CALCIUM LEVEL 8.4 MG/DL (8.5-10.1); CARBON DIOXIDE LEVEL 20 MEQ/L (21-32); CHLORIDE LEVEL 109 MEQ/L (98-107); CREATININE FOR GFR 0.96 MG/DL (0.55-1.02); GLOMERULAR FILTRATION RATE > 60.0 (>58); GLUCOSE, FASTING 99 MG/DL (70-105); POTASSIUM SERUM 3.4 MEQ/L (3.5-5.1); SODIUM LEVEL 138 MEQ/L (136-145)
[2016-04-05] MEDS ORDERED: ACETAMINOPHEN 325 MG TAB PO ONE (17:00)
[2016-04-05] MEDS ORDERED: ZOFR4TAB3 PO ×2 (17:27→17:56)
[2016-04-05] MEDS ORDERED: POTASSIUM CHLORIDE 10 MEQ SR TABLET PO ONE (17:30)
[2016-04-05 17:51] VITALS: BP 157/82
== END 2016-04-05 17:58 | disposition home or self-care (01) ==
LOC: M ED 13:36
DX: R11.2 Nausea with vomiting, unspecified (principal); E86.0 Dehydration; R51 Headache; R10.84 Generalized abdominal pain; E03.9 Hypothyroidism, unspecified; M54.2 Cervicalgia; M70.72 Other bursitis of hip, left hip; Z88.0 Allergy status to penicillin; Z79.899 Other long term (current) drug therapy
CPT/HCPCS: 36415; 80048; 85025; 96374; 99282; J2405

== ENCOUNTER → 2017-01-04 | Outpatient (REF) | payer OTHER ==
[~2017-01-04] MED LIST: AMBI10TA PO; EPIP0.3I2 IM; FLON1SPR; LEVOTAB10 PO; MICA80TA PO; MONT10TA2 PO; OMEP20CA3 PO; PROZ40CA PO; REST0.05 OU; SIMV10TA2 PO; SYNT125T PO; TOPA200T7 PO; TYLE325T5 PO; ZOFR4TAB3 PO
== END ==
LOC: M SFHCWAGY 16:08
PROVIDERS: ATTEND Nurse Practitioner Women's Health
DX: Z12.4 Encounter for screening for malignant neoplasm of cervix (principal)

== ENCOUNTER → 2017-01-04 | Outpatient (CLI) | payer OTHER ==
--- NOTE | 2017-01-04 15:02 | REPMRS ---
Patient History The patient states she had a clinical breast exam in 12/23 Patient had first child at age 34. Family history of colorectal cancer in mother at age 50 or over, breast cancer in paternal grandmother at age 50 or over, and breast cancer in paternal cousin under age 50. Took hormonal contraceptives for 1 year. Digital Woman Screen Mammo: January 04, 2017 - Exam #: [id number] Bilateral CC and MLO view(s) were taken. Technologist: Allyson Smith, Technologist Prior study comparison: November 24, 2015, digital woman screen mammo performed at [facility]. November 18, 2014, digital woman screen mammo performed at [facility]. November 04, 2013, digital woman screen mammo performed at [facility]. FINDINGS: The breast tissue is heterogeneously dense. This may lower the sensitivity of mammography. There is a moderate amount of heterogeneously dense fibroglandular tissue which is fairly symmetric. There is no interval development of dominant mass, architectural distortion, or clustered microcalcification typical of malignancy. There has been no change in the appearance of the mammogram from the prior studies. ASSESSMENT: BI-RADS/ACR category 1 mammogram. Negative. Recommendation Routine screening mammogram of both breasts in 1 year (for women over age 40). This patient's Lifetime Breast Cancer RIsk is estimated at 19.7 %. Annual screening Breast MRI scanniing is recommended for patient's whose lifetime risk assessment is over 20%. This mammogram was interpreted with the aid of an FDA-approved computer-aided dectection system. Electronically Signed By: Andrés Alfaro MD 01/04/17 [id number]
== END ==
LOC: M WHC 14:17
PROVIDERS: ATTEND Nurse Practitioner Women's Health
DX: Z12.31 Encounter for screening mammogram for malignant neoplasm of breast (principal); Z80.3 Family history of malignant neoplasm of breast; Z79.3 Long term (current) use of hormonal contraceptives
CPT/HCPCS: G0123; G0202; G0463

== ENCOUNTER → 2017-04-02 | Outpatient (REF) | payer OTHER | LOC: M LAB REF 18:21 | DX: R30.0 Dysuria (principal) | CPT/HCPCS: 87186 ==

== ENCOUNTER → 2017-05-04 | Outpatient (REF) | payer OTHER | LOC: M LAB REF 21:26 | DX: N39.0 Urinary tract infection, site not specified (principal) | CPT/HCPCS: 87088; 87186 ==

== ENCOUNTER → 2017-06-02 | Outpatient (REF) | payer OTHER | LOC: M LAB REF 19:07 | DX: N39.0 Urinary tract infection, site not specified (principal) ==

== ENCOUNTER → 2017-06-06 | Outpatient (CLI) | payer OTHER | LOC: M WHC 14:59 | DX: D25.1 Intramural leiomyoma of uterus (principal) | CPT/HCPCS: 76830 ==

== ENCOUNTER → 2017-08-18 | Outpatient (REF) | payer OTHER | LOC: M LAB REF 10:09 | DX: N39.0 Urinary tract infection, site not specified (principal) ==

== ENCOUNTER → 2018-01-05 | Outpatient (CLI) | payer OTHER | LOC: M WHC 15:02 | DX: Z12.31 Encounter for screening mammogram for malignant neoplasm of breast (principal); Z80.3 Family history of malignant neoplasm of breast; Z80.0 Family history of malignant neoplasm of digestive organs; Z92.0 Personal history of contraception | CPT/HCPCS: 77067 ==

== ENCOUNTER 2018-01-22 08:49 | Emergency (ER) | payer OTHER ==
[2018-01-22 09:29] LABS: BASO # 0.1 10^3/uL (0.0-0.2); BASO % 1.3 % (0.0-1.0); EOS # 0.3 10^3/uL (0.0-0.50); EOS % 5.7 % (0.0-3.0); HEMATOCRIT 42.1 % (36.0-47.0); HEMOGLOBIN 14.2 g/dl (12.0-15.5); IMMATURE GRANULOCYTE % 0.3 % (0-3.0); LYMPH # 2.1 10^3/uL (1.5-4.5); LYMPH % 35.3 % (24.0-44.0); MEAN CORPUSCULAR HEMOGLOBIN 29.8 pg (27.0-33.0); MEAN CORPUSCULAR HGB CONC 33.7 g/dl (32.0-36.5); MEAN CORPUSCULAR VOLUME 88.4 fl (80.0-96.0); MONO # 0.6 10^3/uL (0.0-0.8); MONO % 9.5 % (0.0-5.0); NEUTROPHILS # 2.9 10^3/uL (1.8-7.7); NEUTROPHILS % 47.9 % (36.0-66.0); PLATELET COUNT, AUTOMATED 341 10^3/uL (150-450); RED BLOOD COUNT 4.76 10^6/uL (4.00-5.40); RED CELL DISTRIBUTION WIDTH 12.5 % (11.5-14.5)
[2018-01-22 09:48] LABS: ERYTHROCYTE SEDIMENTATION RATE 7 mm/hr (0-30)
[2018-01-22 09:56] LABS: INR 0.99; PARTIAL THROMBOPLASTIN TIME 27.7 SECONDS (25.4-37.6); PROTHROMBIN TIME 13.2 SECONDS (12.1-14.4)
[2018-01-22 10:04] LABS: ALBUMIN 3.8 GM/DL (3.2-5.2); ALBUMIN/GLOBULIN RATIO 1.23 (1.00-1.93); ALKALINE PHOSPHATASE 83 U/L (45-117); ALT/SGPT 22 U/L (12-78); ANION GAP 8 MEQ/L (8-16); AST/SGOT 13 U/L (7-37); BILIRUBIN,DIRECT 0.1 MG/DL (0.0-0.2); BILIRUBIN,TOTAL 0.4 MG/DL (0.2-1.0); BLOOD UREA NITROGEN 17 MG/DL (7-18); C REACTIVE PROTEIN QUANTITATIV 0.42 MG/DL (0.00-0.30); CALCIUM LEVEL 8.9 MG/DL (8.5-10.1); CARBON DIOXIDE LEVEL 23 MEQ/L (21-32); CHLORIDE LEVEL 109 MEQ/L (98-107); CK-MB VALUE MASS < 1.0 NG/ML (<3.6); CPK CREATINE PHOSPHOKINASE 71 U/L (26-192); CREATININE FOR GFR 0.92 MG/DL (0.55-1.30); GLOMERULAR FILTRATION RATE > 60.0 (>51); GLUCOSE, FASTING 105 MG/DL (70-100); MB/CK RELATIVE INDEX 1.41 (< OR =4); POTASSIUM SERUM 3.9 MEQ/L (3.5-5.1); SODIUM LEVEL 140 MEQ/L (136-145); TOTAL PROTEIN 6.9 GM/DL (6.4-8.2); TROPONIN I < 0.02 NG/ML (< 0.10)
[2018-01-22] MEDS ORDERED: ISOVUE-370 76% 100ML VIAL (Q9967) As Ordered (10:51)
[2018-01-22 12:17] LABS: CK-MB VALUE MASS < 1.0 NG/ML (<3.6); CPK CREATINE PHOSPHOKINASE 60 U/L (26-192); MB/CK RELATIVE INDEX 1.67 (< OR =4); TROPONIN I < 0.02 NG/ML (< 0.10)
== END 2018-01-22 12:50 | disposition home or self-care (01) ==
LOC: M ED 08:49
DX: M79.662 Pain in left lower leg (principal); R07.9 Chest pain, unspecified; Z79.899 Other long term (current) drug therapy; Z88.0 Allergy status to penicillin
CPT/HCPCS: Q9967

== ENCOUNTER → 2018-04-15 | Outpatient (REF) | payer OTHER ==
[~2018-04-15] MED LIST changes: +ZOFR4TAB14 PO; -ZOFR4TAB3 PO
== END ==
LOC: M LAB REF 11:00
PROVIDERS: ATTEND Physician Assistant Medical
DX: N39.0 Urinary tract infection, site not specified (principal)

== ENCOUNTER → 2020-12-21 | Outpatient (REF) | payer OTHER ==
[~2020-12-21] MED LIST changes: +MONT10TA10 PO; -MONT10TA2 PO; +OMEP1CAP73 PO; -OMEP20CA3 PO; -SIMV10TA2 PO; +SIMV10TA21 PO
[2020-12-21 17:28] LABS: APPEARANCE, URINE CLEAR (CLEAR); BACTERIA, URINE AUTO NEGATIVE (NEGATIVE); BILIRUBIN, URINE AUTO NEGATIVE (NEGATIVE); BLOOD, URINE BLOOD NEGATIVE (NEGATIVE); COLOR, URINE YELLOW (YELLOW); GLUCOSE, URINE (UA) AUTO NEGATIVE (NEGATIVE); KETONE, URINE AUTO NEGATIVE (NEGATIVE); LEUKOCYTE ESTERASE, URINE AUTO TRACE (NEGATIVE); NITRITE, URINE AUTO NEGATIVE (NEGATIVE); PROTEIN, URINE AUTO NEGATIVE (NEGATIVE); RBC, URINE AUTO 0 /HPF (0-3); SPECIFIC GRAVITY URINE AUTO 1.001 (1.002-1.035); SQUAMOUS EPITHELIAL CELL UR AU 0 /HPF (0-6); UROBILINOGEN, URINE AUTO 0.2 mg/dL (0.0-2.0); WBC, URINE AUTO 1 /HPF (0-3)
== END ==
LOC: M LAB REF 16:20
PROVIDERS: ATTEND Physician Assistant
DX: R30.0 Dysuria (principal)